=== PATIENT | female | born 1970 | race Caucasian/White ===

== ENCOUNTER 2023-12-12 15:58 | Emergency (ER) | payer OTHER, SELFPAY ==
[2023-12-12 16:12] VITALS: BP 159/95; PULSE 77; RESP 18; TEMP 36.1; O2SAT 98; BMI 29.0
--- NOTE | 2023-12-12 16:14 | ED_ITS ---
HPI - General Adult General Chief complaint: Wound/Laceration Stated complaint: right hand finger lac Time Seen by Provider: 12/12/23 22:57 Source: patient Mode of arrival: ambulatory Limitations: no limitations History of Present Illness HPI narrative: Patient apparently cut her dorsum distal part of right middle finger from mandolin slicer came with scraping of the skin from the dorsum with actively bleeding no other injuries Related Data Allergies Allergy/AdvReac Type Severity Reaction Status Date / Time SHELLFISH Allergy Unknown ANAPHYLAXIS Uncoded 08/13/20 17:25 Review of Systems 2 Review of Systems: Yes all other systems are reviewed and are negative PMFSH Social History Social History Smoked in Last 30 Days: Yes Use of substances other than those prescribed or required for medical reasons: No Advance Directives: No Advance Directives Information Provided: No Patient : No Physical Exam ED Vital Signs: Vital Signs - 24 hr 12/12/23 16:12 12/12/23 22:00 Temperature 97.0 F Pulse Rate 77 72 Respiratory Rate 18 12 Blood Pressure 159/95 H 159/93 H Pulse Oximetry 98 98 Oxygen Delivery Method Room Air Room Air BMI result Body Mass Index 29.0 Extrem Hand/finger images: 2 1. Loss of skin with actively bleeding Course Course Course Narrative: This is a rapid medical exam: Additional HPI, ROS, PE not included below will be deferred to primary provider. Patient is a 53-year-old female presenting to the ED with complaint of laceration to right 3rd finger. Injured accidentally while slicing potatoes on a mandoline at home prior to arrival. Does not believe tetanus is UTD. Full ROM to finger, denies numbness or tingling. Plan: Tdap Medications Administered Discontinued Medications Generic Name Dose Route Start Last Admin Trade Name Freq PRN Reason Stop Dose Admin Diphtheria/Tetanus/Acell Pertussis 0.5 ml 12/12/23 16:17 12/12/23 22:57 Diphth,Pertus(Acell),Tet Adult 0.5 Ml Syringe IM 12/12/23 16:18 0.5 ml .ONCE ONE Administration Silver Nitrate 1 appl 12/12/23 23:03 12/12/23 23:24 Silver Nitrate Applicator Stick..Ea. TOPICAL 12/12/23 23:04 1 appl ONCE ONE Administration Medical Decision Making Medical Decision Making MDM Narrative: Patient bleeding from the superficial flap laceration with loss of the skin silver nitrate was tried but patient continued to bleed Surgicel was applied and patient has stopped bleeding Discharge Plan Discharge Clinical Impression: Laceration Patient Disposition: Home, Self-Care Instructions: Finger Laceration (ED) Additional Instructions: Local care as advised Stand Alone Forms: Work/School Release Interventions: ED Discharge Assessment Last Done: 12/13/23 00:07 Discharge Date/Time: 12/12/23 23:40
[2023-12-12 22:00] VITALS: BP 159/93; PULSE 72; RESP 12; O2SAT 98
--- NOTE | 2023-12-12 22:55 | PC.NURSE ---
pt just brought back to this room. wound cleaned and pt has a stinging to the wound on her right hand middle finger. bleeding controled.
[2023-12-12] MEDS: Diphth,Pertus(ACell),Tet Adult 0.5 ML SYRINGE IM (22:57)
[2023-12-12] MEDS: Silver Nitrate Applicator STICK..EA. 1 APPL TOPICAL (23:24)
--- NOTE | 2023-12-12 23:33 | PC.NURSE ---
RN to bedside for introductions and to give nitrate stick to provider. MD applied a dressing and secured it with a guaze roll. While RN in the room, the pt stated Umm is this too tight if my finger is turning purple , RN released the dressing and resecured looser than previously applied with cap refill <2 after adjustment
== END 2023-12-12 23:40 | disposition home or self-care (01) ==
PROVIDERS: Emergency Provider Internal Medicine
DX: S61.212A Laceration without foreign body of right middle finger without damage to nail, initial encounter (principal); W27.8XXA Contact with other nonpowered hand tool, initial encounter; Y93.G1 Activity, food preparation and clean up; Y92.010 Kitchen of single-family (private) house as the place of occurrence of the external cause; Y99.9 Unspecified external cause status; Z23 Encounter for immunization
CPT/HCPCS: 17250; 90471; 90715; 99284